=== PATIENT | male | born 1970 | race Caucasian/White ===

== ENCOUNTER 2018-08-22 23:31 | Emergency (ER) | payer BC ==
[2018-08-23] MEDS ORDERED: Ketorolac 60 MG/2 ML SDV IM ONE (00:21)
--- NOTE | 2018-08-23 01:35 | EDM.PDOC ---
ED HPI GENERAL MEDICAL PROBLEM - General Chief Complaint: Lower Extremity Injury/Pain Stated Complaint: RT KNEE SEVERLY HURTS Time Seen by Provider: 08/22/18 23:39 Source of Information: Reports: Patient History Limitations: Reports: No Limitations - History of Present Illness INITIAL COMMENTS - FREE TEXT/NARRATIVE: HISTORY AND PHYSICAL: History of present illness: 48-year-old male presenting to emergency department with chief complaint of right knee pain 2 days. Patient states that for the past 2 days he has been having worsening knee pain. This has been going on for some time. He did seek emergency care in [place] and they did x-rays at that time which showed no significant bony abnormalities. However patient states that soon after that he did fall on his right knee and his pain has been worse. He has had some decreased range of motion secondary to pain. He denies any loss of sensation. No decrease in strength. He does have an appointment to see Dr. Hsieh his primary care provider tomorrow. In [place] they suggested he may have some meniscal damage. He has had some swelling to the right knee with pain radiating from the right most lateral aspect of the knee into the lower leg. Currently states that the pain is 8 out of 10. On exam there is mild effusion noted. Noman's and Adriana's unremarkable. Patient has no pain along tibial plateau. Patient does have pain in the posterior aspect of the knee as well as right lateral aspect. Some decreased range of motion with flexion secondary to swelling as well as extension secondary to pain. No decreased strength, or sensation. Review of systems: As per history of present illness and below otherwise all systems reviewed and negative. Past medical history: As per history of present illness and as reviewed below otherwise noncontributory. Surgical history: As per history of present illness and as reviewed below otherwise noncontributory. Social history: No reported history of drug or alcohol abuse. Family history: As per history of present illness and as reviewed below otherwise noncontributory. Physical exam: See above H&P HEENT: Atraumatic, normocephalic, pupils reactive, negative for conjunctival pallor or scleral icterus, mucous membranes moist, throat clear, neck supple, nontender, trachea midline. Lungs: Clear to auscultation, breath sounds equal bilaterally, chest nontender. Heart: S1S2, regular, negative for clicks, rubs, or JVD. Abdomen: Soft, nondistended, nontender. Negative for masses or hepatosplenomegaly. Negative for costovertebral tenderness. Pelvis: Stable nontender. Genitourinary: Deferred. Rectal: Deferred. Extremities: Atraumatic, negative for cords or calf pain. Neurovascular unremarkable. Neuro: Awake, alert, oriented. Cranial nerves II through XII unremarkable. Cerebellum unremarkable. Motor and sensory unremarkable throughout. Exam nonfocal. Diagnostics: Uric acid, right knee x-ray Therapeutics: Portable 60 mg IM 1, diclofenac 50 mg by mouth twice a day 7 days Impression: Right knee pain Plan: Uric acid as well as right knee x-ray were unremarkable. I did also feel for possible Lieberman's cyst but did not see any evidence on x-ray as well as on palpation of the posterior aspect of the knee. Patient does have a follow-up with primary care provider Dr. Hsieh tomorrow and most likely will need an MRI for further diagnostic imaging. On x-ray it looks like he has good spacing/ cartilage and I do not see any overt evidence of worsening osteoarthritis. Patient was given a prescription for diclofenac and instructed to follow-up with Dr. Hsieh and return to emergency department if any new or worsening symptoms. Definitive disposition and diagnosis as appropriate pending reevaluation and review of above. right knee Pain Score (Numeric/FACES): 5 - Related Data Allergies Allergy/AdvReac Type Severity Reaction Status Date / Time No Known Allergies Allergy Verified 08/23/18 00:22 Home Meds: Home Meds . [No Known Home Meds] 08/23/18 [History] Past Medical History - Past Surgical History Musculoskeletal Surgical History: Reports: Other (See Below) Other Musculoskeletal Surgeries/Procedures:: knee sx Social & Family History - Family History Family Medical History: Noncontributory - Tobacco Use Smoking Status *Q: Never Smoker - Recreational Drug Use Recreational Drug Use: No Review of Systems - Review of Systems Review Of Systems: ROS reveals no pertinent complaints other than HPI. ED EXAM, GENERAL - Physical Exam Exam: See Below Course - Vital Signs Last Recorded V/S: Last Vital Signs Temp 99 F 08/22/18 23:31 Pulse 75 08/22/18 23:31 Resp 18 08/22/18 23:31 BP 130/88 08/22/18 23:31 Pulse Ox 98 08/22/18 23:31 - Orders/Labs/Meds Orders: Active Orders 24 hr Category Date Time Status Knee 3V Rt [CR] Stat Exams 08/23/18 00:21 Taken CBC WITH AUTO DIFF [HEME] Stat Lab 08/23/18 01:50 Ordered COMPREHENSIVE METABOLIC PN,CMP [CHEM] Stat Lab 08/23/18 01:50 Ordered CULTURE URINE [RM] Stat Lab 08/23/18 01:51 Ordered PROLACTIN [CHEM] Stat Lab 08/23/18 01:50 Ordered UA W/MICROSCOPIC [URIN] Stat Lab 08/23/18 01:51 Ordered Labs: Laboratory Tests 08/23/18 Range/Units 00:30 Uric Acid 3.5 (2.6-7.2) mg/dL Meds: Medications Discontinued Medications Generic Name Dose Route Start Last Admin Trade Name Freq PRN Reason Stop Dose Admin Ketorolac Tromethamine 60 mg 08/23/18 00:21 10 00:31 Toradol IM 08/23/18 00:22 60 mg ONETIME ONE Administration Departure - Departure Time of Disposition: 01:56 Disposition: Home, Self-Care 01 Condition: Good Clinical Impression: Right knee pain Qualifiers: Chronicity: chronic Qualified Code(s): M25.561 - Pain in right knee; G89.29 - Other chronic pain - Discharge Information Referrals: PCP,None [Primary Care Provider] - Forms: ED Department Discharge Additional Instructions: My general discharge The following information is given to patients seen in the emergency department who are being discharged to home. This information is to outline your options for follow-up care. We provide all patients seen in our emergency department with a follow-up referral. The need for follow-up, as well as the timing and circumstances, are variable depending upon the specifics of your emergency department visit. If you don't have a primary care physician on staff, we will provide you with a referral. We always advise you to contact your personal physician following an emergency department visit to inform them of the circumstance of the visit and for follow-up with them and/or the need for any referrals to a consulting specialist. The emergency department will also refer you to a specialist when appropriate. This referral assures that you have the opportunity for follow-up care with a specialist. All of these measure are taken in an effort to provide you with optimal care, which includes your follow-up. Under all circumstances we always encourage you to contact your private physician who remains a resource for coordinating your care. When calling for follow-up care, please make the office aware that this follow-up is from your recent emergency room visit. If for any reason you are refused follow-up, please contact the [facility] Emergency Department at and asked to speak to the emergency department charge nurse. [address] [address] Please follow-up with Dr. Hsieh tomorrow as we discussed. Take medication as prescribed. Return to emergency department if any new or worsening symptoms. - My Orders Last 24 Hours: My Active Orders 08/23/18 00:21 Knee 3V Rt [CR] Stat 08/23/18 01:50 CBC WITH AUTO DIFF [HEME] Stat COMPREHENSIVE METABOLIC PN,CMP [CHEM] Stat PROLACTIN [CHEM] Stat 08/23/18 01:51 CULTURE URINE [RM] Stat UA W/MICROSCOPIC [URIN] Stat - Assessment/Plan Last 24 Hours: My Active Orders 08/23/18 00:21 Knee 3V Rt [CR] Stat 08/23/18 01:50 CBC WITH AUTO DIFF [HEME] Stat COMPREHENSIVE METABOLIC PN,CMP [CHEM] Stat PROLACTIN [CHEM] Stat 08/23/18 01:51 CULTURE URINE [RM] Stat UA W/MICROSCOPIC [URIN] Stat
--- NOTE | 2018-08-23 16:31 | CR ---
EXAM DATE: 08/22/18 PATIENT'S AGE: 48 Patient: DHARMESH RIGGINS Facility: [place], [place] Site . Site : [id number] Study: XRay Knee -08/23/2018 1:22:29 AM Ordering Physician: Wally Juárez Final Report: Indication: Injury and pain. Technique: Right knee 3 views Comparison: None Findings: Bones: Alignment is normal. No fractures or bone lesions. Joint spaces: No joint effusion. Joint spaces are well maintained. No degenerative changes. Soft tissues: Unremarkable. Impression: No sign of acute injury. Dictated by Regulo Wilkes MD @ Aug 23 2018 1:34AM (Electronic Signature) Report Signed by Proxy. [facility]
== END 2018-08-23 02:05 | disposition home or self-care (01) ==
LOC: MW.ED 23:31
DX: M25.561 Pain in right knee (principal); G89.29 Other chronic pain; M25.461 Effusion, right knee
CPT/HCPCS: 36415; 73562; 84550; 96372; 99283; J1885